=== PATIENT | female | born 1945 | race Caucasian/White ===

== ENCOUNTER 2017-06-26 16:35 | Observation (INO) | payer MEDICARE ==
[~2017-06-26] VITALS: Ht 167.6 cm; Wt 79.0 kg
--- NOTE | 2017-06-26 | NUR ---
PATIENT ADMITTED FROM ER VIA STRETCHER WITH ER STAFF IN ATTENDANCE. PATIENT IS HIGHLY ANXIOUS AND PACING IN THE ROOM AFTER GETTING OFF THE STRETCHER. ATTEMPTING TO ORIENT THE PATIENT TO THE ROOM AND SURROUNDINGS-DIFFICULT DUE TO PATIENT INABILITY TO STAY FOCUSED FOR ANY LENGTH OF TIME. PATIENT WITH HEP LOCK TO LEFT AC INTACT AND APPEARS HEALTHY WITH GOOD BLOOD RETURN. IVF NS HUNG AND INFUSING AT 100CC/HR. SOLU-MEDROL 40MG IVP GIVEN ORDERED. PATIENT STATES THAT SHE RECENTLY STOPPED TAKING MS CONTIN 30MG TID-STATES THAT SHE STOPPED ON HER OWN-THEN STATES THAT SHE DOES HAVE RX AT HOME, THEN SHE DOESN'T. STATES THAT SHE STOPPED TWO WEEKS AGO AND THEN TOOK SOME LAST WEEK. STATES THAT SHE SEES DR. HERNANDEZ WHO DID HER BACK SURGERIES. ALSO SEES BON CEDENO AT HEALTH DEPT. PATIENT FRIEND IN TO VISIT FOR SHORT TIME. PATIENT STATES THAT SHE HASN'T EATEN IN DAYS-PROVIDED WITH TURKEY SANDWICH AND GATORADE. SAFETY PRECAUTIONS REVIEWED WITH PATIENT. INSTRUCTED ON USE OF NURSE CALL LIGHT SYSTEM AND TV REMOTE. INSTRUCTED ON USE OF HOSPITAL PHONE. CALL LIGHT IN REACH. WILL CONT TO MONITOR. PATIENT WITH VERY FLIGHTY THOUGHTS
[~2017-06-26 16:35] MED LIST: ADVAIR DISK1 INH; ASPIRIN EC325 MG PO; ASPIRIN LOW81 M1 PO; BUSPAR10 MG PO; CLONAZEPAM0.5 MG PO; DESYREL50 MG/TAB PO; DILAUDID2 MG PO; DILAUDID4 MG PO; FLULAVAL IM; IMITREX100 MG PO; INDERAL 40MG TA40 MG PO; KADIAN10 MG OR; MS CONTIN15 MG OR; MS CONTIN15 MG PO; MS CONTIN30 MG PO; NUCYNTA100 MG; OMEGA-31000 MG PO; OXYCO/APAP1 TA1 PO; PERCOCET1 TA4 PO; PROAIR HFA IN; PROVENTIL HFA IN; PROVENTIL0.083 % INH; PROZAC40 MG PO; ROBAXIN-750750 MG OR; ROBAXIN-750750 MG PO; SENOKOT S1 TAB PO; SINGULAIR 10 MG10 MG PO; SINGULAIR10 MG PO; SKELAXIN800 MG PO; TOPAMAX100 MG PO; VITAMI18 PO; WELLBUTRIN SR100 MG PO; ZANAFLEX4 M2 PO
[2017-06-26] MEDS ORDERED: STRATTERA60 MG PO (16:49)
[2017-06-26] MEDS ORDERED: DONEPEZIL5 MG PO (16:49)
[2017-06-26] MEDS ORDERED: VENLAFAXINE75 MG PO (16:49)
--- NOTE | 2017-06-26 16:52 | NUR ---
PT SENT BACK TO WAITING ROOM,
--- NOTE | 2017-06-26 17:01 | NUR ---
PT BROUGHT TO ROOM FOR EXAM
--- NOTE | 2017-06-26 17:55 | NUR ---
AWAITING [facility] [place]
[2017-06-26 17:59] LABS: HEMATOCRIT 40.7 % (37.0-47.0); HEMOGLOBIN 13.8 g/dl (12.0-16.0); IMMATURE GRANULOCYTES 0.5 % (0.0-1.0); MEAN CELL VOLUME 89.3 fL CALC (80.0-100.0); MEAN CORPUSCULAR HGB 30.3 pG CALC (26.0-32.0); MEAN CORPUSCULAR HGB CONC 33.9 g/L CALC (32.0-36.0); NEUT# 10.97 thou/uL (2.00-7.15); RED BLOOD COUNT 4.56 mill/uL (4.20-5.60); RED CELL DISTRI WIDTH 12.8 % (11.5-15.5)
--- NOTE | 2017-06-26 18:08 | NUR ---
BREATHING TREATMENT GIVEN. BREATHING TECH. FOR GOOD DEPOSITION TO THE LUNGS.
[2017-06-26 18:33] LABS: ALBUMIN 4.6 g/dL (3.2-5.0); ALKALINE PHOSPHATASE 83 u/l (38-126); ANION GAP 19 (6-22 (CALC)); BILIRUBIN, TOTAL 0.3 mg/dL (0.0-1.4); BUN 21 mg/dL (8-23); BUN/CREATININE RATIO 22 (12-20 (CALC)); CARBON DIOXIDE 22 mmol/l (22-30); CHLORIDE 104 mmol/l (95-108); CREATININE 0.9 mg/dL (0.5-1.0); GFR > 60 ML/MIN (>=60 (CALC)); GFR FOR AFR.AMER. > 60 ML/MIN (>=60 (CALC)); POTASSIUM 3.8 mmol/l (3.5-5.1); SGOT/AST 27 u/l (9-36); SGPT/ALT 28 u/l (11-66); SODIUM 142 mmol/l (137-146); TOTAL PROTEIN 7.1 g/dL (6.3-8.2)
--- NOTE | 2017-06-26 18:48 | NUR ---
REPORT TO FRANCO DIEGO
--- NOTE | 2017-06-26 19:45 | NUR ---
DR CASTILLO AT BEDSIDE, C/O CHEST HEAVINESS.
--- NOTE | 2017-06-26 20:44 | NUR ---
PT TOOK HOME MED [place], [place] DR CASTILLO.
--- NOTE | 2017-06-26 20:50 | NUR ---
PT VERY ANXIOUS, MED ORDER GIVEN.
[2017-06-26 21:05] LABS: URINE BILIRUBIN - DIPSTICK NEGATIVE (NEGATIVE); URINE BLOOD DIPSTICK SMALL (NEGATIVE); URINE CLARITY CLEAR; URINE COLOR YELLOW; URINE GLUCOSE - DIPSTICK NEGATIVE (NEGATIVE); URINE KETONE NEGATIVE (NEGATIVE); URINE LEUK ESTERASE NEGATIVE (NEGATIVE); URINE NITRITE - DIPSTICK NEGATIVE (Negative); URINE PROTEIN - DIPSTICK NEGATIVE (NEG-TRACE); URINE SPECIFIC GRAVITY <=1.005; URINE UROBILINOGEN - DIPSTICK 0.2 E.U./dL (0.2)
[2017-06-26 21:11] LABS: BARBITURATES NEGATIVE (NEGATIVE); COCAINE NEGATIVE (NEGATIVE); METHADONE NEGATIVE (NEGATIVE); OXCYCODONE NEGATIVE (NEGATIVE); TETRAHYDROCANNABIONOL NEGATIVE (NEGATIVE); TRICYLIC ANTIDEPRESSANTS NEGATIVE (NEGATIVE); URINE SQUAMOUS EPITHELIAL CELL FEW EPI/hpf (0-FEW)
[2017-06-26 21:18] LABS: INFLUENZA A NONE DETECTED (NONE DETECT); INFLUENZA B NONE DETECTED (NONE DETECT)
--- NOTE | 2017-06-26 21:45 | NUR ---
PT B/P 189/91, DR CASTILLO INFORMED. MED ORDER GIVEN.
--- NOTE | 2017-06-26 22:45 | NUR ---
REPORT CALLED TO DANITZA GAMEZ.
--- NOTE | 2017-06-26 22:50 | NUR ---
PT REMAINS VERY ANXIOUS, AGITATED THAT SHE IS STILL IN ER. DR CASTILLO INFORMED, MED ORDERED.
[2017-06-26 23:15] VITALS: BP 134/78
--- NOTE | 2017-06-26 23:18 | NUR ---
PT TO RM 290 WITH RN ON TELE.
--- NOTE | 2017-06-27 01:27 | NUR ---
PATIENT STATES THAT SHE HAS TO HAVE HER "PSYCH MEDS TONIGHT" THAT INCLUDE HER TRAZADONE AND SOMETHING ELSE THAT SHE CAN'T REMEMBER. PATIENT REMAINS QUITE ANXIOUS AT THIS TIME. DR. DESAI CALLED AND ORDERS RECIEVED FOR TRAZADONE AND KLONOPIN. PATIENT NOTIFIED OF THE NEW ORDERS AND WILL BE MEDICATED WHEN PROFFILED ON PATIENT EMAR. PATIENT CONT TO SAY THAT SHE NEEDS HER OTHER "PSYCH" MEDS BUT IS NOT ABLE TO NAME THEM. PATIENT REASSURED THAT DR. SALES AND/OR HIS STAFF WILL BE IN THE MORNING TO FURTHER EVAL PATIENT NEEDS. SAFETY PRECAUTIONS REINFORCED. CALL LIGHT IN REACH. WILL CONT TO MONITOR.
--- NOTE | 2017-06-27 02:00 | NUR ---
PATIENT MEDICATED WITH KLONOPIN 1MG AND TRAZADONE 100MG PO ORDERED. PATIENT IS NOW ASKING FOR HER IMETREX AND TYLENOL FOR HER HEADACHE. PATIENT CONT TO HAVE VERY FLIGHTY THOUGHTS AND CONT WITH HIGH ANXIETY. EXPLAINED TO THE PATIENT THAT THE DR WOULD BE HERE THIS MORNING TO RE-EVALUATE HER NEEDS. PATIENT RESTING IN BED WITH IVF PATENT AND INFUSING AT 125CC/HR. SAFETY PRECAUTIONS REINFORCED. CALL LIGHT IN REACH. WILL CONT TO MONITOR.
--- NOTE | 2017-06-27 03:57 | NUR ---
PATIENT APPEARS SLEEPING AT THIS TIME IN NO ACUTE DISTESS. CALL LIGHT IN REACH. WILL CONT TO MONITOR.
[2017-06-27 04:18] VITALS: BP 140/70
--- NOTE | 2017-06-27 06:00 | NUR ---
PATIENT MEDICATED WITH SOLU-MEDROL ORDERED. PATIENT IS MUCH CALMER THIS MORNING. STATES THAT SHE FINALLY GOT SOME SLEEP. CALL LIGHT IN REACH. WILL CONT TO MONITOR.
[2017-06-27 06:46] LABS: HEMATOCRIT 41.1 % (37.0-47.0); HEMOGLOBIN 13.7 g/dl (12.0-16.0); MEAN CELL VOLUME 90.1 fL CALC (80.0-100.0); MEAN CORPUSCULAR HGB CONC 33.3 g/L CALC (32.0-36.0); RED BLOOD COUNT 4.56 mill/uL (4.20-5.60); RED CELL DISTRI WIDTH 12.9 % (11.5-15.5)
[2017-06-27 06:56] LABS: ANION GAP 18 (6-22 (CALC)); BUN 18 mg/dL (8-23); BUN/CREATININE RATIO 20 (12-20 (CALC)); CARBON DIOXIDE 24 mmol/l (22-30); CHLORIDE 108 mmol/l (95-108); CREATININE 0.9 mg/dL (0.5-1.0); GFR > 60 ML/MIN (>=60 (CALC)); GFR FOR AFR.AMER. > 60 ML/MIN (>=60 (CALC)); POTASSIUM 4.3 mmol/l (3.5-5.1); SODIUM 146 mmol/l (137-146)
[2017-06-27 09:30] VITALS: BP 122/71
--- NOTE | 2017-06-27 09:30 | NUR ---
ASSESSMENT IS COMPLETED: IV SITE IS FREE FROM REDNESS OR EDEMA. NO DISTRESS NTOED. TELE MONITOR IN PLACE, PT WAS SLEEPING VERY HARD,
[2017-06-27 11:41] VITALS: BP 156/86
--- NOTE | 2017-06-27 12:00 | NUR ---
PT IS RELAXING IN BED WAITING TO BE CLEANED UP NO DISTRESS NOTED. IV SITE IS FREE FROM REDNESS OR EDEMA. CONTINUE TO OSBERVE AND MONOTOR.
[2017-06-27] MEDS ORDERED: PREDNISONE10 MG PO (12:15)
--- NOTE | 2017-06-27 14:05 | NUR ---
DISCHARGE INSTRUCTIONS GIVNE AND PT VERBALIZED UNDERSTANDING,. IV SITE DISCONITNUED CATHETER INTACT NOREDNESS OR EDEMA. Discharge instructions given. Patient verbalizes understanding of same. Discharged in stable condition via Wheelchair to Home with family. All belongings sent with pt.
== END 2017-06-27 14:00 | disposition home or self-care (01) ==
LOC: ED 16:35 → ED-I 19:50 → ED 21:28 → MS2 21:29
PROVIDERS: Emergency Medicine; ADMIT Internal Medicine; ATTEND Internal Medicine
DX: R07.89 Other chest pain (principal); J45.901 Unspecified asthma with (acute) exacerbation; M19.90 Unspecified osteoarthritis, unspecified site; F31.9 Bipolar disorder, unspecified; I10 Essential (primary) hypertension; F41.1 Generalized anxiety disorder; G89.29 Other chronic pain; M54.9 Dorsalgia, unspecified
CPT/HCPCS: G0378; J2060

== ENCOUNTER 2018-01-11 07:56 | Day surgery (SDC) | payer MEDICARE ==
[~2018-01-11] VITALS: Ht 162.6 cm; Wt 81.6 kg
[~2018-01-11 07:56] MED LIST changes: +DONEPEZIL5 MG PO; +PREDNISONE10 MG PO; +STRATTERA60 MG PO; +TRAZODONE300 MG PO; +VENLAFAXINE75 MG PO
[2018-01-11 11:18] VITALS: BP 141/56
== END 2018-01-11 11:10 | disposition home or self-care (01) ==
LOC: ENDO 07:56
PROVIDERS: ATTEND Surgery
PROC: 0DJD8ZZ Inspection of Lower Intestinal Tract, Via Natural or Artificial Opening Endoscopic (ICD-10-PCS; principal; 2018-01-11)
DX: Z12.11 Encounter for screening for malignant neoplasm of colon (principal); K64.4 Residual hemorrhoidal skin tags; J45.20 Mild intermittent asthma, uncomplicated; G47.33 Obstructive sleep apnea (adult) (pediatric); F32.9 Major depressive disorder, single episode, unspecified

== ENCOUNTER 2019-03-28 07:03 | Day surgery (SDC) | payer MEDICARE ==
[~2019-03-28] VITALS: Ht 162.6 cm; Wt 72.6 kg
[2019-03-28 09:26] VITALS: BP 131/65
== END 2019-03-28 09:39 | disposition home or self-care (01) ==
LOC: ORM 07:03
PROVIDERS: ATTEND Surgery
PROC: 0DJ08ZZ Inspection of Upper Intestinal Tract, Via Natural or Artificial Opening Endoscopic (ICD-10-PCS; principal; 2019-03-28)
DX: K29.80 Duodenitis without bleeding (principal); K44.9 Diaphragmatic hernia without obstruction or gangrene; Z98.84 Bariatric surgery status

== ENCOUNTER 2022-04-26 07:04 | Day surgery (SDC) | payer MEDICARE ==
[~2022-04-26] VITALS: Ht 160 cm; Wt 65.3 kg
[~2022-04-26 07:04] MED LIST changes: +CARDIZEM30 MG PO; +LOSARTAN POTASS25 MG PO; +OXYCOD-APAP1 TA1 PO
[2022-04-26] MEDS ORDERED: ZPAK PO (07:26)
[2022-04-26 08:52] VITALS: BP 118/64
== END 2022-04-26 08:55 | disposition home or self-care (01) ==
LOC: ENDO 07:04 → ORM 07:30 → ENDO 08:55 → ORM 09:50
PROVIDERS: ATTEND Internal Medicine Gastroenterology
PROC: 0DJD8ZZ Inspection of Lower Intestinal Tract, Via Natural or Artificial Opening Endoscopic (ICD-10-PCS; principal; 2022-04-26)
DX: K64.8 Other hemorrhoids (principal); K57.30 Diverticulosis of large intestine without perforation or abscess without bleeding